=== PATIENT | female | born 2000 | race Caucasian/White ===

== ENCOUNTER → 2024-01-06 | Outpatient (CLI) | payer OTHER | LOC: M SLEEP 20:00 | PROVIDERS: ATTEND Physician Assistant | DX: R40.0 Somnolence (principal) ==

== ENCOUNTER → 2024-03-08 | Outpatient (REF) | payer OTHER | LOC: M PLALAB 09:18 | PROVIDERS: ATTEND Nurse Practitioner Family | DX: Z53.9 Procedure and treatment not carried out, unspecified reason (principal) ==

== ENCOUNTER → 2024-03-08 | Outpatient (CLI) | payer OTHER ==
[2024-03-08 14:11] LABS: HEMATOCRIT 37.3 % (36.0-47.0); HEMOGLOBIN 12.3 g/dl (12.0-15.5); PLATELET COUNT, AUTOMATED 210 10^3/uL (150-450); RED BLOOD COUNT 4.24 10^6/uL (4.00-5.40); WHITE BLOOD COUNT 8.6 10^3/uL (4.0-10.0)
[2024-03-08 15:04] LABS: HIV 1&2 SCREEN NEGATIVE (NEGATIVE)
[2024-03-08 15:13] LABS: HEPATITIS C VIRUS ABY INDEX 0.02 INDEX (<0.8)
[2024-03-08 15:30] LABS: GC DNA AMPLIFICATION NEGATIVE (NEGATIVE)
== END ==
LOC: M PLALAB 09:42
PROVIDERS: ATTEND Nurse Practitioner Family
DX: Z34.80 Encounter for supervision of other normal pregnancy, unspecified trimester (principal); Z3A.00 Weeks of gestation of pregnancy not specified

== ENCOUNTER → 2024-04-05 | Outpatient (CLI) | payer OTHER | LOC: M PLALAB 09:35 | PROVIDERS: ATTEND Obstetrics & Gynecology | DX: Z34.80 Encounter for supervision of other normal pregnancy, unspecified trimester (principal) ==

== ENCOUNTER → 2024-05-05 | Outpatient (CLI) | payer OTHER | LOC: M WHC 08:34 | PROVIDERS: ATTEND Obstetrics & Gynecology | DX: Z36.89 Encounter for other specified antenatal screening (principal); Z3A.19 19 weeks gestation of pregnancy; O32.1XX0 Maternal care for breech presentation, not applicable or unspecified ==

== ENCOUNTER → 2024-06-30 | Outpatient (CLI) | payer OTHER ==
[2024-06-30 13:20] LABS: HEMATOCRIT 36.8 % (36.0-47.0); HEMOGLOBIN 11.7 g/dl (12.0-15.5); MEAN CORPUSCULAR HEMOGLOBIN 27.5 pg (27.0-33.0); MEAN CORPUSCULAR HGB CONC 31.8 g/dl (32.0-36.5); MEAN CORPUSCULAR VOLUME 86.6 fl (80.0-96.0); PLATELET COUNT, AUTOMATED 228 10^3/uL (150-450); RED BLOOD COUNT 4.25 10^6/uL (4.00-5.40); WHITE BLOOD COUNT 12.4 10^3/uL (4.0-10.0)
[2024-06-30 13:25] LABS: GLUCOSE CHALLENGE TEST 1 HOUR 76 MG/DL (LESS THAN 140)
[2024-06-30 14:03] LABS: HIV 1&2 SCREEN NEGATIVE (NEGATIVE)
[2024-06-30 14:11] LABS: HEPATITIS C VIRUS ABY INDEX 0.03 INDEX (<0.8)
[2024-06-30 14:17] LABS: Trichomonas vaginalis (AMP) NOT DETECTED (NEGATIVE)
[2024-06-30 14:41] LABS: GC DNA AMPLIFICATION NEGATIVE (NEGATIVE)
== END ==
LOC: M PLALAB 10:09
PROVIDERS: ATTEND Obstetrics & Gynecology
DX: Z34.92 Encounter for supervision of normal pregnancy, unspecified, second trimester (principal)